=== PATIENT | male | born 1945 | race Caucasian/White ===

== ENCOUNTER → 2022-05-18 13:13 | Outpatient (BNVA) | payer MEDICARE, SELFPAY | PROVIDERS: Family Provider Nurse Practitioner Family; PCP Family Medicine; Referring Provider Nurse Practitioner Family; Visit Provider Specialist | DX: G56.22 Lesion of ulnar nerve, left upper limb (principal) | CPT/HCPCS: 95908; 95910 ==

== ENCOUNTER → 2022-07-19 13:00 | Outpatient (BNVA) | payer MEDICARE, SELFPAY | PROVIDERS: Family Provider Nurse Practitioner Family; PCP Family Medicine; Visit Provider Specialist | DX: G56.22 Lesion of ulnar nerve, left upper limb (principal) | CPT/HCPCS: 73080; 99204 ==

== ENCOUNTER → 2022-09-28 14:06 | Outpatient (BNVA) | payer MEDICARE, SELFPAY | PROVIDERS: Family Provider Nurse Practitioner Family; PCP Family Medicine; Visit Provider Podiatrist Foot & Ankle Surgery | DX: I73.9 Peripheral vascular disease, unspecified (principal); M20.41 Other hammer toe(s) (acquired), right foot; M20.42 Other hammer toe(s) (acquired), left foot; M21.619 Bunion of unspecified foot; G62.9 Polyneuropathy, unspecified; B35.1 Tinea unguium | CPT/HCPCS: 11721; 99204 ==

== ENCOUNTER → 2022-09-28 15:31 | Outpatient (BNVA) | payer MEDICARE, SELFPAY | PROVIDERS: Family Provider Nurse Practitioner Family; PCP Family Medicine; Visit Provider Nurse Practitioner Family | DX: D48.9 Neoplasm of uncertain behavior, unspecified (principal) | CPT/HCPCS: 88305 ==

== ENCOUNTER 2022-10-04 13:39 | Emergency (ER) | payer MEDICARE, SELFPAY ==
[2022-10-04 13:45] VITALS: BP 172/88; PULSE 68; RESP 14; TEMP 35.9; O2SAT 93; BMI 18.4
--- NOTE | 2022-10-04 13:52 | ED_ITS ---
HPI - Weakness General: Chief complaint: Weakness Stated complaint: multiple falls Time Seen by Provider: 10/04/22 13:52 History of Present Illness: Mr. Turner is a 77-year-old gentleman with history of hypertension presenting due to increased weakness over the past few days. Onset of symptoms was gradual and progressively is worsened to the point that it is severe. He endorses multiple falls including falls today. He does not think that he lost consciousness but is somewhat unsure. No other specific changes in health, exacerbating, or alleviating factors identified. Onset (ago): day(s) Duration: progressively worsening Location: generalized Severity: severe Quality: other Relieving factors: none Exacerbating factors: exertion Review of Systems General: Reports: 10 or more systems reviewed and unremarkable except in HPI and below PFSH ED PFSH: Medical History Crohn disease Enlarged prostate History of blood clots HTN (hypertension) Surgical History History of rotator cuff surgery Social History Smoking and tobacco status: never smoked Alcohol intake: never History of recent travel: No Physical Exam Const: COMMON NORMALS: patient oriented x3 and alert GENERAL APPEARANCE: cooperative, well developed and ill appearing HENMT: COMMON NORMALS: normocephalic HEAD & SCALP: normocephalic OTHER: Contusion to posterior right head. No arteaga signs or raccoon eyes. No hemotympanum. No otorrhea or rhinorrhea. Jaw alignment normal. Dentition baseline. No obvious bony step-offs. No septal hematoma. No evidence of ocular entrapment. Eye: COMMON NORMALS: conjunctivae normal CONJUNCTIVA: Yes conjunctivae normal SCLERA: sclerae normal Neck/C-Spine: COMMON NORMALS: supple GENERAL: Yes trachea midline Resp: COMMON NORMALS: clear to auscultation bilaterally EFFORT & INSPECTION: Yes able to speak in complete sentences AUSCULTATION: clear to auscultation bilaterally Cardio: COMMON NORMALS: regular rate and regular rhythm RATE: regular rate RHYTHM: regular rhythm GI: COMMON NORMALS: Soft to palpation PALPATION: Yes Soft to palpation and No Tenderness to palpation present (GI) Extremity: NARRATIVE EXTREMITY EXAM: Right hip tenderness to palpation-mild GENERAL: Yes normal exam except as noted and No edema Neuro: COMMON NORMALS: patient oriented x3, CN's II-XII intact bilaterally, moves all extremities, no focal motor deficits and no sensory deficits noted SENSORIUM/ORIENTATION: Yes alert and No Orientation impaired Psych: COMMON NORMALS: mental status grossly normal and Normal thought process present THOUGHT PROCESS: Normal thought process present Course Vital Signs: Vital signs: Vital Signs Temperature 96.7 F L 10/04/22 13:45 Pulse Rate 96 10/04/22 16:47 Respiratory Rate 25 H 10/04/22 16:47 Blood Pressure 181/103 10/04/22 16:47 Pulse Oximetry 96 10/04/22 16:10 Oxygen Delivery Me thod 10/04/22 16:10 MDM - Weakness Medical Decision Making 77-year-old gentleman presenting to the emergency department for generalized illness with falls. Head to toe exam performed. Mildly ill in appearance. EKG notable for sinus rhythm with first-degree AV block, otherwise normal axis and intervals, no STEMI. Labs notable for mild leukocytosis, mild hyponatremia and dehydration. Negative viral panel. Negative range 2-hour delta troponin. CT head with moderate-sized right subdural hematoma with midline shift. Chest x-ray negative. Patient is hypertensive and nicardipine ordered. Patient requires neurosurgical evaluation and therefore requires transfer. He was accepted by Dr. Yanes at [facility]. The results of ED evaluation were discussed with the patient including plan for transfer due to requirement for level of care not available if discharged to prevent significant worsening/deterioration. Patient agreeable with plan. Patient transferred via EMS without neurologic deterioration. Medical Records I reviewed the patient's medical records. Lab Data I reviewed the patient's lab results. 10/04/22 13:58 10/04/22 13:58 Radiology Impressions Chest X-Ray 10/04/22 14:02 IMPRESSION: No acute findings. Head CT 10/04/22 14:51 IMPRESSION: 1. Moderate-sized acute RIGHT subdural hematoma extends over the RIGHT cerebrum with a maximum diameter 9.5 mm. 2. Mild effacement and mass effect upon the RIGHT cerebrum with 3 to 4 mm of midline shift. No obstructive hydrocephalus. 3. No fracture. 4. Soft tissue hematoma centered over the posterior parietal region. Notified Allan Dietz MD at 10/04/2022 3:28 PM. Laboratory Results WBC 12.3 10^3/uL (4.0-10.0) H 10/04/22 13:58 RBC 3.24 10^6/uL (4.1-5.3) L 10/04/22 13:58 Hgb 11.8 g/dL (11.7-16.6) 10/04/22 13:58 Hct 35.3 % (42.0-52.0) L 10/04/22 13:58 MCV 109.0 fl (80-94) H 10/04/22 13:58 MCH 36.4 pg (28.0-34.0) H 10/04/22 13:58 MCHC 33.4 g/dL (30.0-36.0) 10/04/22 13:58 RDW 11.7 % (12.1-15.1) L 10/04/22 13:58 Plt Count 236 10^3/cmm (130-400) 10/04/22 13:58 MPV 9.9 fL (7.4-10.4) 10/04/22 13:58 Neut % (Auto) 73.6 % 10/04/22 13:58 Lymph % (Auto) 12.9 % 10/04/22 13:58 [place] % (Auto) 11.9 % 10/04/22 13:58 Eos % (Auto) 0.8 % 10/04/22 13:58 Baso % (Auto) 0.4 % 10/04/22 13:58 Neut # (Auto) 9.05 10^3/uL (1.8-7.7) H 10/04/22 13:58 Lymph # (Auto) 1.6 10^3/uL (0.8-4.8) 10/04/22 13:58 [place] # (Auto) 1.5 10^3/uL (0.2-0.9) H 10/04/22 13:58 Eos # (Auto) 0.1 10^3/uL (0.0-0.8) 10/04/22 13:58 Baso # (Auto) 0.1 10^3/uL (0.0-0.1) 10/04/22 13:58 Nucleated RBC % (auto) 0 % 10/04/22 13:58 Nucleated RBCs # 0.0 /100WBC 10/04/22 13:58 PT 15.30 SECONDS (12.1-14.9) H 10/04/22 15:38 INR 1.17 (0.8-1.2) 10/04/22 15:38 APTT 26.8 SECONDS (23.9-36.7) 10/04/22 15:38 D-Dimer 1.58 ug/mIFEU (0-0.59) H 10/04/22 13:58 Sodium 131 mmol/L (136-145) L 10/04/22 13:58 Potassium 3.8 mmol/L (3.5-5.1) 10/04/22 13:58 Chloride 96 mmol/L (98-107) L 10/04/22 13:58 Carbon Dioxide 27 mmol/L (22-29) 10/04/22 13:58 Anion Gap 11.8 (5-19) 10/04/22 13:58 BUN 16 mg/dL (8-23) 10/04/22 13:58 Creatinine 0.6 mg/dL (0.7-1.2) L 10/04/22 13:58 GFR Calculation Not Reportable 10/04/22 13:58 Glucose 95 mg/dL (65-115) 10/04/22 13:58 Calculated Osmolality 273 mOsm/kg (285-295) L 10/04/22 13:58 Calcium 8.4 mg/dL (8.5-10.5) L 10/04/22 13:58 Total Bilirubin 1.0 mg/dL (0.15-1.2) 10/04/22 13:58 AST 43 U/L (0-40) H 10/04/22 13:58 ALT 36 U/L (0-41) 10/04/22 13:58 Alkaline Phosphatase 116 U/L (40-130) 10/04/22 13:58 Ammonia 14 umol/L (16-60) L 10/04/22 15:38 Troponin T Baseline 12 ng/L (0-15) 10/04/22 13:58 Troponin T 120 Minute 12.79 ng/L (0-15) 10/04/22 15:38 Delta Troponin T 0.79 ABS# (0-10) 10/04/22 15:38 Troponin T Hi Sens 6Hr Cancelled 10/04/22 13:58 Troponin T Hi Sens 6Hr Delta Cancelled 10/04/22 13:58 C-Reactive Protein 106.1 mg/L (0.0-4.9) H 10/04/22 13:58 NT-Pro-B Natriuret Pep 1979 pg/mL (0-450) H 10/04/22 13:58 Total Protein 6.2 g/dL (6.6-8.7) L 10/04/22 13:58 Albumin 2.9 g/dL (3.5-5.2) L 10/04/22 13:58 Globulin 3.3 g/dL (1.3-4.6) 10/04/22 13:58 Procalcitonin 0.13 ng/mL (0-0.5) 10/04/22 13:58 TSH 2.55 uIU/mL (0.27-4.20) 10/04/22 13:58 Coronavirus 229E (PCR) Not detected (NOT DETECT) 10/04/22 14:49 SARS-CoV-2 (PCR) Not detected (NOT DETECT) 10/04/22 14:49 Critical Care Time Critical Care Time: Critical Care Time: Yes Total Critical Care Time: 35 Attestation: Due to a high probability of clinically significant, possibly life threatening deterioration, the patient required my highest level of attention and preparedness to intervene emergently and I personally spent this critical care time directly and personally managing the patient. This critical care time included obtaining a history; examining the patient; pulse oximetry; ordering and review of laboratory and imaging studies; arranging urgent treatment with development of a management plan; evaluation of patient's response to treatment; frequent reassessment; and, discussions with other providers as applicable. It was exclusive of separately billable procedures. Primary system involved is trauma Discharge Plan Discharge Patient Disposition: Xfer Short-Term Hosp Clinical Impression: Fall, Hemorrhage, subdural, traumatic Condition: Stable Referrals: Vu Jones [Primary Care Provider] - Coding Level of Care Code ED Harmonic Analyst for Tia Ignacio
--- NOTE | 2022-10-04 14:02 | XRR_ITS ---
PROCEDURE INFORMATION: Exam: XR Chest Exam date and time: 10/04/2022 2:10 PM Age: 77 years old Clinical indication: Other: Abnormal lung sounds; Patient HX: PT states that they switched his medicine and he is now falling alot and can no longer catch himself; Additional info: Falls, abnormal lung sounds TECHNIQUE: Imaging protocol: Radiologic exam of the chest. Views: 1 view. COMPARISON: No relevant prior studies available. FINDINGS: Lungs: Unremarkable. No consolidation. Pleural spaces: Unremarkable. No pleural effusion. No pneumothorax. Heart/Mediastinum: Unremarkable. No cardiomegaly. Bones/joints: Unremarkable. XR/XR chest 1V portable [id number] IMPRESSION: No acute findings.
--- NOTE | 2022-10-04 14:10 | ECG_ITS ---
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 Measurements Intervals [place] Rate: 75 P: 75 MI: 217 QRS: 68 QRSD: 90 T: 95 QT: 401 QTc: 450 Interpretive Statements SINUS RHYTHM WITH SINUS ARRHYTHMIA WITH FIRST DEGREE AV BLOCK MODERATE ST DEPRESSION [0.05+ mV ST DEPRESSION] No previous ECG available for comparison Electronically Signed On 10-04-2022 15:15:05 SR. UNIX SYSTEM ADMINISTRATOR by Beltran Ta M.D. [id number]
[2022-10-04 14:18] LABS: Basophils # 0.1 10^3/uL (0.0-0.1); Basophils % 0.4 %; Eosinophils # 0.1 10^3/uL (0.0-0.8); Eosinophils % 0.8 %; Hematocrit 35.3 % (42.0-52.0); Hemoglobin 11.8 g/dL (11.7-16.6); Lymphocytes # 1.6 10^3/uL (0.8-4.8); Lymphocytes % 12.9 %; Mean Corpuscular HGB Conc 33.4 g/dL (30.0-36.0); Mean Corpuscular Hemoglobin 36.4 pg (28.0-34.0); Mean Platelet Volume 9.9 fL (7.4-10.4); Monocytes # 1.5 10^3/uL (0.2-0.9); Monocytes % 11.9 %; Neutrophils # 9.05 10^3/uL (1.8-7.7); Neutrophils % 73.6 %; Nucleated Red Blood Cells % 0 %; Platelet Count 236 10^3/cmm (130-400); Red Blood Count 3.24 10^6/uL (4.1-5.3); Red Cell Distribution Width 11.7 % (12.1-15.1); White Blood Count 12.3 10^3/uL (4.0-10.0)
[2022-10-04 14:25] LABS: D Dimer 1.58 ug/mIFEU (0-0.59)
[2022-10-04 14:32] LABS: Troponin(5th) Baseline 12 ng/L (0-15)
[2022-10-04 14:39] LABS: NT Pro B Type Natriuretic Pept 1979 pg/mL (0-450); Procalcitonin 0.13 ng/mL (0-0.5); Thyroid Stimulating Hormone 2.55 uIU/mL (0.27-4.20)
[2022-10-04 14:50] LABS: Alanine Aminotransferase 36 U/L (0-41); Albumin Level 2.9 g/dL (3.5-5.2); Alkaline Phosphatase 116 U/L (40-130); Anion Gap 11.8 (5-19); Aspartate Amino Transferase 43 U/L (0-40); Blood Urea Nitrogen 16 mg/dL (8-23); C Reactive Protein 106.1 mg/L (0.0-4.9); Calcium 8.4 mg/dL (8.5-10.5); Carbon Dioxide 27 mmol/L (22-29); Chloride 96 mmol/L (98-107); Globulin 3.3 g/dL (1.3-4.6); Glucose 95 mg/dL (65-115); Osmolality Calculated 273 mOsm/kg (285-295); Potassium 3.8 mmol/L (3.5-5.1); Sodium 131 mmol/L (136-145); Total Protein 6.2 g/dL (6.6-8.7)
--- NOTE | 2022-10-04 14:51 | CT_ITS ---
WS: [id number] CT HEAD NONCONTRAST HISTORY: falls, generalized weakness TECHNIQUE: Contiguous axial imaging performed through the brain in 2.5 mm imaging. Bone and soft tiss ue windows. Sagittal and coronal reformats reviewed. All CT scans at [facility] use at least one of these dose optimization techniques: automated exposure control; mA and/or kV adjustment per pa tient size (includes targeted exams where dose is matched to clinical indication); or iterative recon struction. DLP: 1043.45 mGy.cm COMPARISON: None available. Acute moderate sized RIGHT subdural hematoma extends from the vertex over the RIGHT frontal, parietal and temporal lobes. Maximum diameter of the acute bleed is 9.5 mm. A small amount of acute blood ext ends along the anterior interhemispheric falx. There is mild midline shift by 3 to 4 mm. No uncal her niation. Mild effacement of sulci in the RIGHT cerebrum. No temporal lobe dilatation. Mild atrophy and small vessel ischemic disease. Ventricles: Normal size with no hydrocephalus. Paranasal sinuses: As visualized are clear. Mastoid air cells: Well pneumatized. Calvarium and scalp: Hyperdense scalp hematoma centered over the posterior mid parietal bone. No frac ture. CT/CT head wo con* [id number] IMPRESSION: 1. Moderate-sized acute RIGHT subdural hematoma extends over the RIGHT cerebru m with a maximum diameter 9.5 mm. 2. Mild effacement and mass effect upon the RIGHT cerebrum with 3 to 4 mm of m idline shift. No obstructive hydrocephalus. 3. No fracture. 4. Soft tissue hematoma centered over the posterior parietal region. Notified Allan Dietz MD at 10/04/2022 3:28 PM.
[2022-10-04] MEDS: sodium chloride 0.9% 1,000 ML 999 ML IV (15:35)
[2022-10-04 16:01] LABS: INR 1.17 (0.8-1.2)
[2022-10-04 16:02] LABS: Partial Thromboplastin Time 26.8 SECONDS (23.9-36.7)
[2022-10-04 16:05] LABS: Troponin 5 2HR 12.79 ng/L (0-15)
[2022-10-04 16:10] VITALS: BP 188/86; PULSE 84; RESP 16; O2SAT 96
--- NOTE | 2022-10-04 16:10 | ECG_ITS ---
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 Measurements Intervals [place] Rate: 85 P: 82 HI: 220 QRS: 66 QRSD: 103 T: 74 QT: 401 QTc: 479 Interpretive Statements SINUS RHYTHM WITH FIRST DEGREE AV BLOCK Compared to ECG 10/04/2022 14:10:05 Sinus arrhythmia no longer present ST (T wave) deviation no longer present Electronically Signed On 10-04-2022 19:55:37 DAIRY FEED WORKER by Beltran Ta M.D. [id number]
[2022-10-04 16:14] LABS: Ammonia 14 umol/L (16-60); Troponin 5 2HR Delta 0.79 ABS# (0-10)
[2022-10-04] MEDS: nicardipine 20 MG/200 ML PREMIX 50 MG IV (16:41)
[2022-10-04 16:47] VITALS: BP 181/103; PULSE 96; RESP 25
[2022-10-04 18:23] LABS: Adenovirus Not Detected (NOT DETECT); Chlamydia Pneumoniae Not Detected (NOT DETECT); Coronavirus 229E,HKU1,NL63,OC4 Not Detected (NOT DETECT); Human Metapneumovirus Not Detected (NOT DETECT); Human Rhinovirus/Enterovirus Not Detected (NOT DETECT); Influenza A Not Detected (NOT DETECT); Influenza A H1 Not Detected (NOT DETECT); Influenza A H1-2009 Not Detected (NOT DETECT); Influenza A H3 Not Detected (NOT DETECT); Influenza B Not Detected (NOT DETECT); Mycoplasma Pneumoniae Not Detected (NOT DETECT); Parainfluenza Virus Type 1 Not Detected (NOT DETECT); Parainfluenza Virus Type 2 Not Detected (NOT DETECT); Parainfluenza Virus Type 3 Not Detected (NOT DETECT); Parainfluenza Virus Type 4 Not Detected (NOT DETECT); Respiratory Syncytial Virus A Not Detected (NOT DETECT); Respiratory Syncytial Virus B Not Detected (NOT DETECT); SARS-COV-2 Not Detected (NOT DETECT)
== END 2022-10-04 16:50 | disposition short-term general hospital (02) ==
PROVIDERS: Emergency Provider Emergency Medicine; PCP Family Medicine
DX: S06.5XAA Traumatic subdural hemorrhage with loss of consciousness status unknown, initial encounter (principal); W19.XXXA Unspecified fall, initial encounter; Z20.822 Contact with and (suspected) exposure to COVID-19
CPT/HCPCS: 36415; 70450; 71045; 80053; 82140; 83880; 84145; 84443; 84484; 85025; 85378; 85610; 85730; 86140; 87040; 87635; 93005; 96361; 96374; 99285; J7030

== ENCOUNTER → 2022-12-13 10:29 | Outpatient (BNVA) | payer MEDICARE, SELFPAY | PROVIDERS: PCP Family Medicine; Visit Provider Podiatrist Foot & Ankle Surgery | DX: I73.9 Peripheral vascular disease, unspecified (principal); L97.504 Non-pressure chronic ulcer of other part of unspecified foot with necrosis of bone | CPT/HCPCS: 99213 ==

== ENCOUNTER → 2022-12-27 14:55 | Outpatient (BNVA) | payer MEDICARE, SELFPAY | PROVIDERS: PCP Family Medicine; Visit Provider Podiatrist Foot & Ankle Surgery | DX: I73.9 Peripheral vascular disease, unspecified (principal); L97.514 Non-pressure chronic ulcer of other part of right foot with necrosis of bone | CPT/HCPCS: 99213 ==